=== PATIENT | female | born 1950 | race Caucasian/White ===

== ENCOUNTER 2016-06-16 11:08 | Emergency (ER) | payer MEDICARE, BC ==
[2016-06-16 13:00] VITALS: BP 147/67
[2016-06-16] MEDS ORDERED: Lidocaine/Epineph/Tetraca SOL* (LET solution) 4 ML BTL TOPICAL ONE (13:39)
[2016-06-16] MEDS ORDERED: Lidocaine/Epineph/Tetraca SOL* (LET solution) 4 ML BTL ONE (13:41)
--- NOTE | 2016-06-16 13:44 | UC ---
Skin Complaint HPI - HPI Summary HPI Summary: patient has has a cyst on her back for a while, recently on a plane and the pain has increased since. - History of Current Complaint Chief Complaint: UCSkin Time Seen by Provider: 06/16/16 13:35 Stated Complaint: CYST ON TAILBONE Hx Obtained From: Patient ?: No Onset/Duration: Sudden Onset, Lasting Weeks Skin Exposure Onset/Duration: Weeks Ago Timing: Constant Onset Severity: Mild Current Severity: Severe Pain Intensity: 7 Pain Scale Used: 0-10 Numeric Location: Discrete - low center back Character: Swelling, Pruritus, Redness, Raised, Painful Aggravating: Touch Alleviating: Nothing - Allergy/Home Medications Allergies/Adverse Reactions: Allergies Allergy/AdvReac Type Severity Reaction Status Date / Time Sulfa Antibiotics Allergy Rash Verified 06/16/16 13:00 Home Medications: Home Medications Aspirin EC Low Dose* [Ecotrin EC Low Dose*] 81 mg PO DAILY 06/16/16 [History Confirmed 06/16/16] Review of Systems Constitutional: Negative Skin: Other - cyst Eyes: Negative ENT: Negative Respiratory: Negative Cardiovascular: Negative Gastrointestinal: Negative Genitourinary: Negative Motor: Negative Neurovascular: Negative Musculoskeletal: Negative Neurological: Negative Psychological: Negative All Other Systems Reviewed And Are Negative: Yes PMH/Surg Hx/FS Hx/Imm Hx Previously Healthy: Yes - Surgical History Surgical History: None - Family History Known Family History: Negative: Hypertension - Social History Alcohol Use: None Substance Use Type: None Smoking Status (MU): Never Smoked Tobacco Physical Exam Triage Information Reviewed: Yes Appearance: Well-Appearing, Well-Nourished, Pain Distress Vital Signs: Initial Vital Signs Temp 97.5 F 06/16/16 12:57 Pulse 75 06/16/16 12:57 Resp 14 06/16/16 12:57 BP 147/67 06/16/16 12:57 Pulse Ox 98 06/16/16 12:57 Vital Signs Reviewed: Yes Eye Exam: Normal Eyes: Positive: Conjunctiva Clear ENT Exam: Normal ENT: Positive: Normal ENT inspection, Hearing grossly normal, Pharynx normal, TMs normal Dental Exam: Normal Neck exam: Normal Neck: Positive: Supple, Nontender, No Lymphadenopathy Respiratory Exam: Normal Respiratory: Positive: Chest non-tender, Lungs clear, Normal breath sounds Cardiovascular Exam: Normal Cardiovascular: Positive: RRR, No Murmur, Pulses Normal Abdominal Exam: Normal Abdomen Description: Positive: Nontender, No Organomegaly, Soft Bowel Sounds: Positive: Present Musculoskeletal Exam: Normal Musculoskeletal: Positive: Strength Intact, ROM Intact, No Edema Neurological Exam: Normal Neurological: Positive: Alert, Muscle Tone Normal Psychological Exam: Normal Psychological: Positive: Normal Response To Family, Age Appropriate Behavior, Abnormal Response To Family Skin: Positive: Other - large 7 cm in diameter cyst with fluctuant center, erythema around the base Course/Dx - Course Course Of Treatment: hx obtained, exam performed, i and d of cyst performed after topical anesthetic and liodicaine injection, large amount of debris removed, packed with iodoform guase after irrigation, placed on keflxe, wound culture taken, receommmend follow up in two days. - Differential Diagnoses - Skin Complaint Differential Diagnoses: Abscess, Cellulitis, Foreign Body, MRSA - Diagnoses Provider Diagnoses: infected sebaceaous cyst Discharge - Discharge Plan Condition: Stable Disposition: HOME Patient Education Materials: Epidermal Inclusion Cysts (ED) Additional Instructions: take the antibiotic as directed, keep the area clean and dry. follow up in three days to have packing removed and be reevaluated, here or at your primary office. ibuprofen for pain.
[2016-06-16] MEDS ORDERED: Lidocaine 2% W/EPI 1:100,000* 20 ML MDV ONE (14:08)
== END 2016-06-16 15:06 | disposition home or self-care (01) ==
LOC: UCCORT 11:08
DX: L72.3 Sebaceous cyst (principal); Z88.2 Allergy status to sulfonamides; Z79.82 Long term (current) use of aspirin
CPT/HCPCS: 10060; 87070; 87205; 87640; 87641; 99202; G0463

== ENCOUNTER 2016-06-18 18:27 | Emergency (ER) | payer MEDICARE, BC ==
[2016-06-18 18:50] VITALS: BP 158/84
[2016-06-18] MEDS ORDERED: Tetan/Diph/Pertus SYR(Tdap)* 0.5 ML SYR(BOOSTRIX) use SYR IM ONE (19:12)
--- NOTE | 2016-06-18 19:18 | UC ---
HPI Wound/Suture Re-check - HPI Summary HPI Summary: recheck abscess on back. Drained and packed 2d ago. Packing removed today. Wound is not very painful - History Of Current Complaint Chief Complaint: UCSkin Stated Complaint: RECHECK WOUND Time Seen by Provider: 06/18/16 19:05 Hx Obtained From: Patient Onset/Duration: Gradual Onset, Lasting Days - 2 Severity: Mild Surgery Date: 06/16/16 - Allergies/Home Medications Allergies/Adverse Reactions: Allergies Allergy/AdvReac Type Severity Reaction Status Date / Time Sulfa Antibiotics Allergy Rash Verified 06/18/16 18:50 PMH/Surg Hx/FS Hx/Imm Hx Previously Healthy: Yes - Surgical History Surgical History: None - Family History Known Family History: Negative: Hypertension - Social History Occupation: Employed Full-time Lives: With Family Alcohol Use: None Substance Use Type: None Smoking Status (MU): Never Smoked Tobacco Review of Systems Constitutional: Negative Skin: Other - abscess, draining Eyes: Negative ENT: Negative Respiratory: Negative Cardiovascular: Negative Gastrointestinal: Negative Genitourinary: Negative Motor: Negative Neurovascular: Negative Musculoskeletal: Negative Neurological: Negative Psychological: Negative All Other Systems Reviewed And Are Negative: Yes Physical Exam Triage Information Reviewed: Yes Appearance: Well-Appearing, No Pain Distress, Well-Nourished Vital Signs: Initial Vital Signs Temp 97.3 F 06/18/16 18:45 Pulse 60 06/18/16 18:45 Resp 14 06/18/16 18:45 BP 158/84 06/18/16 18:45 Pulse Ox 98 06/18/16 18:45 Vital Signs Reviewed: Yes Eye Exam: Normal Neck exam: Normal Respiratory Exam: Normal Cardiovascular Exam: Normal Musculoskeletal Exam: Normal Neurological Exam: Normal Psychological Exam: Normal Skin Exam: Other - abscess mid back lower thoracic spine area. Packing removed. No thick pus expressed, just some scant serosanguinous fluid. Mildly tender. Wound dressed without repacking Course/Dx - Differential Dx - Laceration/Wound Provider Diagnoses: resolving abscess Discharge - Discharge Plan Condition: Stable Disposition: HOME Patient Education Materials: Abscess (ED) Referrals: Lobo Garcia MD [Primary Care Provider] - Additional Instructions: KEep the wound clean with soap and water once a day. Cover it with a bandage until the oozing stops. Put heat on it to speed up the healing. If it starts to get worse, return, particularly if you have fever or start vomiting.
== END 2016-06-18 19:26 | disposition home or self-care (01) ==
LOC: UCCORT 18:27
DX: L02.212 Cutaneous abscess of back [any part, except buttock and flank] (principal); Z88.2 Allergy status to sulfonamides; Z23 Encounter for immunization
CPT/HCPCS: 90471; 90715; 99212; G0463

== ENCOUNTER 2018-09-08 16:20 | Emergency (ER) | payer BC, MEDICARE ==
[2018-09-08 17:01] VITALS: BP 112/57
--- NOTE | 2018-09-08 18:19 | UC ---
Respiratory Complaint HPI - HPI Summary HPI Summary: Per drafting engineer: "HAS HAD A "HARSH COUGH" AND CHEST CONGESTION FOR CLOSE TO A MONTH. DID HAVE SOME MILD BODYACHES AT THE BEGINNING OF THE ILLNESS. NO FEVER SHE IS AWARE OF. DENIES SOB.DID HAVE A MILD SORE THROAT WHICH HAS NOW RESOLVED. PT STATES SHE FEELS SHE IS IMPROVING .STILL HAS A SLIGHT COUGH . " -no asthma. non smoker -improving but lingering -no production - wants her to get checked out bc it is lingering. -no fever. never needed inhaler or prednisone for cough -no sinus pain - History of Current Complaint Chief Complaint: UCRespiratory Stated Complaint: COUGH Time Seen by Provider: 09/08/18 17:40 Pain Intensity: 0 - Allergies/Home Medications Allergies/Adverse Reactions: Allergies Allergy/AdvReac Type Severity Reaction Status Date / Time Sulfa (Sulfonamide Allergy Unknown Rash Verified 09/08/18 16:45 Antibiotics) Home Medications: Home Medications Calcium Citrate/Vitamin D3 [Citracal + D Maximum Caplet] 1 tab PO DAILY [History Confirmed 09/08/18] Cholecalciferol (Vitamin D3) [Vitamin D3] 1,000 unit PO DAILY 09/08/18 [History Confirmed 09/08/18] Citalopram TAB* [Celexa TAB*] 20 mg PO DAILY 09/08/18 [History Confirmed ] Lisinopril/HCTZ 02/10.5(NF) [Zestoretic 02/10.(NF)] 1 tab PO DAILY 09/08/18 [ History Confirmed 09/08/18] Multivitamin [Multivitamins] 1 cap PO DAILY 09/08/18 [History Confirmed 09/08/18 ] PMH/Surg Hx/FS Hx/Imm Hx Previously Healthy: Yes - Surgical History Surgical History: None - Family History Known Family History: Negative: Hypertension - Social History Alcohol Use: None Substance Use Type: None Smoking Status (MU): Never Smoked Tobacco Household Exposure Type: Cigarettes Review of Systems All Other Systems Reviewed And Are Negative: Yes Constitutional: Positive: Negative Skin: Positive: Negative Eyes: Positive: Negative ENT: Positive: Sore Throat. Negative: Ear Ache, Sinus Congestion, Sinus Pain/ Tenderness Respiratory: Positive: Cough. Negative: Shortness Of Breath, Other Cardiovascular: Positive: Negative Gastrointestinal: Positive: Negative Genitourinary: Positive: Negative Motor: Positive: Negative Neurovascular: Positive: Negative Musculoskeletal: Positive: Negative Neurological: Positive: Negative Psychological: Positive: Negative Is Patient Immunocompromised?: No Physical Exam Triage Information Reviewed: Yes Appearance: Well-Appearing, No Pain Distress - very pleasant, Well-Nourished Vital Signs: Initial Vital Signs Temp 98.4 F 09/08/18 16:49 Pulse 72 09/08/18 16:49 Resp 17 09/08/18 16:49 BP 112/57 09/08/18 16:49 Pulse Ox 99 09/08/18 16:49 Vital Signs Reviewed: Yes Eye Exam: Normal ENT: Positive: Hearing grossly normal, Pharyngeal erythema - midl w/ PND., Uvula midline. Negative: TMs normal, TM bulging, TM dull, TM red, Tonsillar swelling, Tonsillar exudate, Hoarse voice, Sinus tenderness Neck exam: Normal Neck: Positive: Supple, Nontender, No Lymphadenopathy Respiratory Exam: Normal Respiratory: Positive: Lungs clear, Normal breath sounds, No respiratory distress, No accessory muscle use. Negative: Crackles, Rhonchi, Stridor, Wheezing Cardiovascular Exam: Normal Cardiovascular: Positive: RRR, No Murmur, Pulses Normal Abdominal Exam: Normal Abdomen Description: Positive: Nontender, Soft Musculoskeletal Exam: Normal Neurological Exam: Normal Psychological Exam: Normal Skin Exam: Normal Respiratory Course/Dx - Course Course Of Treatment: CXR - per my interpretation - NAD -pt understands that CXR is not read by [facility] philippe but will be tomorrow and should get a call if there is a discrepency. she can call for results tomorrow and should have f/u with her pcp to review results as well -alb MDI for sx relief. prn. disc SEs of increased heart rate, jittery feeling - Differential Dx/Diagnosis Differential Diagnosis/HQI/PQRI: Bronchitis, Sinusitis Provider Diagnosis: Bronchitis Discharge - Sign-Out/Discharge Documenting (check all that apply): Patient Departure All imaging exams completed and their final reports reviewed: No Studies - Discharge Plan Condition: Stable Disposition: HOME Prescriptions: Albuterol HFA INHALER* [Ventolin HFA Inhaler*] 2 puff INH Q4H PRN 14 Days #1 mdi PRN Reason: Cough Patient Education Materials: Acute Bronchitis (ED) Referrals: Lobo Garcia MD [Primary Care Provider] - 1 Week Additional Instructions: Diagnosis bronchitis. At this time there is no evidence for bacterial infection. Review of your chest x-ray by myself does not show any acute disease , however we did discuss that I am not a radiologist and the official report will be back tomorrow. You can call for the official report and her primary care can also requested report. The albuterol inhaler I prescribed can help her symptoms of cough area and use it as needed. Please follow up if your symptoms change, increase or persist or develop a fever. Drink plenty of fluids and get lots of rest. - Billing Disposition and Condition Condition: STABLE Disposition: Home
--- NOTE | 2018-09-08 19:00 | UC ---
- Progress Note Progress Note: Addedum to PN - CXR was done that was not reveiowed yet by RAD Course/Dx - Diagnoses Provider Diagnoses: Bronchitis Discharge - Sign-Out/Discharge Documenting (check all that apply): Post-Discharge Follow Up All imaging exams completed and their final reports reviewed: No - Discharge Plan Condition: Stable Disposition: HOME Prescriptions: Albuterol HFA INHALER* [Ventolin HFA Inhaler*] 2 puff INH Q4H PRN 14 Days #1 mdi PRN Reason: Cough Patient Education Materials: Acute Bronchitis (ED) Referrals: Lobo Garcia MD [Primary Care Provider] - 1 Week Additional Instructions: Diagnosis bronchitis. At this time there is no evidence for bacterial infection. Review of your chest x-ray by myself does not show any acute disease , however we did discuss that I am not a radiologist and the official report will be back tomorrow. You can call for the official report and her primary care can also requested report. The albuterol inhaler I prescribed can help her symptoms of cough area and use it as needed. Please follow up if your symptoms change, increase or persist or develop a fever. Drink plenty of fluids and get lots of rest. - Billing Disposition and Condition Condition: STABLE Disposition: Home
--- NOTE | 2018-09-09 08:45 | UC ---
- Progress Note Progress Note: Radiologist reading of chest x-ray from September 08, 2018 is no acute disease process. The provider from same date diagnosed acute bronchitis therefore there is no discrepancy. Course/Dx - Diagnoses Provider Diagnoses: Bronchitis Discharge - Sign-Out/Discharge Documenting (check all that apply): Patient Departure All imaging exams completed and their final reports reviewed: Yes - Discharge Plan Condition: Stable Disposition: HOME Prescriptions: Albuterol HFA INHALER* [Ventolin HFA Inhaler*] 2 puff INH Q4H PRN 14 Days #1 mdi PRN Reason: Cough Patient Education Materials: Acute Bronchitis (ED) Referrals: Lobo Garcia MD [Primary Care Provider] - 1 Week Additional Instructions: Diagnosis bronchitis. At this time there is no evidence for bacterial infection. Review of your chest x-ray by myself does not show any acute disease , however we did discuss that I am not a radiologist and the official report will be back tomorrow. You can call for the official report and her primary care can also requested report. The albuterol inhaler I prescribed can help her symptoms of cough area and use it as needed. Please follow up if your symptoms change, increase or persist or develop a fever. Drink plenty of fluids and get lots of rest. - Billing Disposition and Condition Condition: STABLE Disposition: Home
== END 2018-09-08 18:52 | disposition home or self-care (01) ==
LOC: UCCORT 16:20
DX: J40 Bronchitis, not specified as acute or chronic (principal); Z88.2 Allergy status to sulfonamides
CPT/HCPCS: 71046; 99212; G0463